=== PATIENT | female | born 1930 | race Caucasian/White ===

== ENCOUNTER → 2016-04-28 | Outpatient (CLI) | payer OTHER, MEDICARE ==
--- NOTE | 2016-04-28 13:20 | DX ---
Right ankle - 3 views Indication: Ankle sprain. Swelling. Technique: AP, mortise, and lateral views. Comparison: None Findings: The bones are anatomically aligned. No acute fracture or derangement of the ankle mortise. The joint spaces are well preserved. Tiny spurs emanate off the distal fibula and medial malleolus. N o significant soft tissue swelling. Impression: Negative. No acute fracture.
== END ==
LOC: CIMAGING 10:34
PROVIDERS: ATTEND Family Medicine
DX: S93.401A Sprain of unspecified ligament of right ankle, initial encounter (principal)
CPT/HCPCS: 73610-PO

== ENCOUNTER → 2016-06-20 | Outpatient (CLI) | payer OTHER, MEDICARE | LOC: CIMAGING 16:55 | PROVIDERS: ATTEND Family Medicine | DX: J44.9 Chronic obstructive pulmonary disease, unspecified (principal) | CPT/HCPCS: 71020-PO ==

== ENCOUNTER → 2016-08-08 | Outpatient (CLI) | payer OTHER, MEDICARE | LOC: BHFA 09:15 | PROVIDERS: ATTEND Internal Medicine Cardiovascular Disease | DX: I48.91 Unspecified atrial fibrillation (principal); I25.10 Atherosclerotic heart disease of native coronary artery without angina pectoris; I10 Essential (primary) hypertension ==

== ENCOUNTER 2017-04-17 11:13 | Observation (INO) | payer OTHER, MEDICARE ==
--- NOTE | 2017-04-17 11:35 | CPEKG ---
Heart Rate: 109 RR Interval: 550 P-R Interval: 128 QRSD Interval: 108 QT Interval: 360 QTC Interval: 485 P [place]: 0 QRS [place]: -37 T Wave [place]: 110 EKG Severity - ABNORMAL ECG - EKG Impression: A-V DUAL-PACED COMPLEXES W/ SOME INHIBITION Electronically Signed By: Jacinto Solis 17-Apr-2017 11:43:07
[2017-04-17] MEDS ORDERED: ASPIRIN 81 MG CHEWABLE TAB PO ONE (11:38)
--- NOTE | 2017-04-17 11:41 | EDPHY ---
H & P Stated Complaint: c/o upper abd/mid sternal chest pain/ nausea this am - currently no pain Time Seen by Provider: 04/17/17 11:27 HPI/ROS: CHIEF COMPLAINT: Nausea HISTORY OF PRESENT ILLNESS: The patient is an 86-year-old female with a history of cardiac disease including several stents, myocardial infarction, atrial fibrillation on Coumadin and pacemaker placement. She states that she was feeling well except getting over a slight cold when this morning she had nausea in her epigastric region that radiated up to her mid sternum. This began around 9:30 a.m. and lasted for about an hour. It is now resolved. She did not feel lightheaded. No diaphoresis. No radiation. No shortness of breath. It did not feel similar to her [place] symptoms. She thought that maybe it was because she took her Synthroid without food today. REVIEW OF SYSTEMS: Constitutional: denies: chills, fever, recent illness, recent injury EENTM: denies: blurred vision, double vision, nose congestion Respiratory: denies: cough, shortness of breath Cardiac: denies: chest pain, irregular heart rate, lightheadedness, palpitations Gastrointestinal/Abdominal: See HPI denies: abdominal pain, diarrhea, vomiting , blood streaked stools Genitourinary: denies: dysuria, frequency, hematuria, pain Musculoskeletal: denies: joint pain, muscle pain Skin: denies: lesions, rash, jaundice, bruising Neurological: denies: headache, numbness, paresthesia, tingling, dizziness, weakness Hematologic/Lymphatic: denies: blood clots, easy bleeding, easy bruising Immunologic/allergic: denies: HIV/AIDS, transplant EXAM: GENERAL: Well-appearing, well-nourished and in no acute distress. HEAD: Atraumatic, normocephalic. EYES: Pupils equal round and reactive to light, extraocular movements intact, sclera anicteric, conjunctiva are normal. ENT: TMs normal, nares patent, oropharynx clear without exudates. Moist mucous membranes. NECK: Normal range of motion, supple without lymphadenopathy or JVD. LUNGS: Breath sounds clear to auscultation bilaterally and equal. No wheezes rales or rhonchi. HEART: Regular rate and rhythm without murmurs, rubs or gallops. ABDOMEN: Soft, nontender, normoactive bowel sounds. No guarding, no rebound. No masses appreciated. BACK: No CVA tenderness, no spinal tenderness, step-offs or deformities EXTREMITIES: Normal range of motion, no pitting or edema. No clubbing or cyanosis. NEUROLOGICAL: Cranial nerves II through XII grossly intact. Normal speech, normal gait. 5/5 strength, normal movement in all extremities, normal sensation PSYCH: Normal mood, normal affect. SKIN: Warm, dry, normal turgor, no visible rashes or lesions. Source: Patient, Family Exam Limitations: No limitations - Personal History Current Tetanus Diphtheria and Acellular Pertussis (TDAP): Yes Tetanus Vaccine Date: 2012 - Medical/Surgical History Hx Asthma: No Hx Chronic Respiratory Disease: No Hx Diabetes: No Hx Cardiac Disease: Yes Hx Renal Disease: No Hx Cirrhosis: No Hx Alcoholism: No Hx HIV/AIDS: No Hx Splenectomy or Spleen Trauma: No Other PMH: THYROID, AFIB, PACEMAKER, [place], GALLBLADDER, RIGHT SHOULDER, CATARACTS , CAROTID ANEURISM, "MINI STROKES" - Family History Significant Family History: No pertinent family hx - Social History Smoking Status: Former smoker Alcohol Use: Sober Drug Use: None Constitutional: Initial Vital Signs Temperature (C) 37.2 C 04/17/17 11:25 Heart Rate 109 H 04/17/17 11:25 Respiratory Rate 18 04/17/17 11:25 Blood Pressure 102/94 H 04/17/17 11:25 O2 Sat (%) 94 04/17/17 11:25 O2 Delivery Mode Room Air Allergies/Adverse Reactions: codeine [Codeine] Allergy (Verified 08/20/15 10:20) Other-Enter Comments hydrocodone [Hydrocodone] Allergy (Verified 08/20/15 10:20) Other-Enter Comments morphine Allergy (Verified 08/20/15 10:20) Other-Enter Comments Home Medications: Medication Instructions Recorded Aspirin 81mg 03/28/09 SIMVASTATIN 03/28/09 Ativan 07/01/09 CO Q-10 07/01/09 Levothyroxine [Synthroid] mcg PO DAILY 02/11/11 WARFARIN SODIUM [Coumadin] mg PO 02/11/11 Simvastatin 10 mg PO 01/05/12 Sotalol 01/05/12 Carvedilol 08/20/15 Melatonin 08/20/15 VITAMIN D 08/20/15 Medical Decision Making - Diagnostics EKG Interpretation: An EKG obtained and was read and documented in trace view. Please see trace view for full reading and report. Paced rhythm Imaging Results: Imaging Impressions Chest X-Ray 04/17/17 11:38 Impression: Increased interstitial prominence, possibly related to a combination of airways disease superimposed on underlying COPD/emphysema. Imaging: Discussed imaging studies w/ order caller Radiologist ED Course/Re-evaluation: 12:30 p.m. the patient's lab work thus far is reassuring as is her x-ray. We discussed options. I recommended admission for further rule out considering her cardiac history. She agrees with this. She typically sees Dr. Ashby. We will admit to the hospital service and consult Cardiology. 12:38 p.m. I discussed the case with Librado from Cardiology who will consult. 12:44 p.m. I discussed the case with Ann who will accept to the medical service for Dr. Leon. Differential Diagnosis: Partial list of the Differential diagnosis considered include but were not limited to; acute coronary disease, arrhythmia, reflux, esophageal spasm , musculoskeletal and although unlikely based on the history and physical exam, I also considered PE, dissection, pneumonia pericarditis. - Data Points Laboratory Results: Laboratory Results 04/17/17 11:44 04/17/17 11:44 04/17/17 04/17/17 04/17/17 11:44 11:44 11:44 WBC 7.66 10^3/uL 10^3/uL (3.80-9.50) RBC 3.86 10^6/uL L 10^6/uL (4.18-5.33) Hgb 11.8 g/dL L g/dL (12.6-16.3) Hct 36.8 % L % (38.0-47.0) MCV 95.3 fL fL (81.5-99.8) MCH 30.6 pg pg (27.9-34.1) MCHC 32.1 g/dL L g/dL (32.4-36.7) RDW 13.4 % % (11.5-15.2) Plt Count 226 10^3/uL 10^3/uL (150-400) MPV 10.3 fL fL (8.7-11.7) Neut % (Auto) 51.7 % % (39.3-74.2) Lymph % (Auto) 34.6 % % (15.0-45.0) [place] % (Auto) 10.2 % % (4.5-13.0) Eos % (Auto) 2.9 % % (0.6-7.6) Baso % (Auto) 0.3 % % (0.3-1.7) Nucleat RBC Rel Count 0.0 % % (0.0-0.2) Absolute Neuts (auto) 3.97 10^3/uL 10^3/uL (1.70-6.50) Absolute Lymphs (auto) 2.65 10^3/uL 10^3/uL (1.00-3.00) Absolute Monos (auto) 0.78 10^3/uL 10^3/uL (0.30-0.80) Absolute Eos (auto) 0.22 10^3/uL 10^3/uL (0.03-0.40) Absolute Basos (auto) 0.02 10^3/uL 10^3/uL (0.02-0.10) Absolute Nucleated RBC 0.00 10^3/uL 10^3/uL (0-0.01) Immature Gran % 0.3 % % (0.0-1.1) Immature Gran # 0.02 10^3/uL 10^3/uL (0.00-0.10) PT 26.1 SEC H SEC (12.0-15.0) INR 2.47 H (0.83-1.16) APTT 39.6 SEC H SEC (23.0-38.0) Sodium 143 mEq/L mEq/L (135-145) Potassium 5.3 mEq/L H mEq/L (3.5-5.2) Chloride 104 mEq/L mEq/L (97-110) Carbon Dioxide 27 mEq/l mEq/l (22-31) Anion Gap 12 mEq/L mEq/L (8-16) BUN 33 mg/dL H mg/dL (7-23) Creatinine 1.1 mg/dL H mg/dL (0.6-1.0) Estimated GFR 47 Glucose 83 mg/dL mg/dL (70-100) Calcium 9.3 mg/dL mg/dL (8.5-10.4) Total Bilirubin 0.3 mg/dL mg/dL (0.1-1.4) Conjugated Bilirubin 0.1 mg/dL mg/dL (0.0-0.5) Unconjugated Bilirubin 0.2 mg/dL mg/dL (0.0-1.1) AST 29 IU/L IU/L (14-46) ALT 36 IU/L IU/L (9-52) Alkaline Phosphatase 59 IU/L IU/L (38-126) Troponin I < 0.012 ng/mL ng/mL (0.000-0.034) Total Protein 6.3 g/dL g/dL (6.3-8.2) Albumin 3.5 g/dL g/dL (3.5-5.0) Lipase 190 IU/L IU/L (23-300) Medications Given: Discontinued Medications Aspirin (Aspirin) 324 mg PO EDNOW ONE Stop: 04/17/17 11:39 Last Admin: 04/17/17 11:47 Dose: 324 mg Departure - Departure Disposition: [facility] Inpatient Acute Clinical Impression: Chest pain Qualifiers: Chest pain type: unspecified Qualified Code(s): R07.9 - Chest pain, unspecified Condition: Fair
[2017-04-17 11:48] LABS: PLATELET COUNT 226 10^3/uL (150-400)
[2017-04-17 12:04] LABS: INR 2.47 (0.83-1.16); PROTIME(PATIENT) 26.1 SEC (12.0-15.0)
[2017-04-17] MEDS ORDERED: ONDANSETRON DISINTEGRATING 4 MG TAB PO PRN (14:19)
[2017-04-17] MEDS ORDERED: ONDANSETRON 4 MG/2 ML VIAL IVP PRN (14:19)
[2017-04-17] MEDS ORDERED: WARFARIN SODIUM 3 MG TAB PO SCH (16:00)
--- NOTE | 2017-04-17 16:00 | HOSPPROG ---
Hospitalist Progress Note Assessment/Plan: no sbp aggressive diuresis Objective: Vital Signs Temp Pulse Resp BP Pulse Ox 36.7 C 74 16 118/55 L 94 04/17/17 14:26 04/17/17 14:26 04/17/17 14:26 04/17/17 14:26 04/17/17 14:26 PT 26.1 SEC (12.0-15.0) H 04/17/17 11:44 INR 2.47 (0.83-1.16) H 04/17/17 11:44 ICD10 Worksheet Patient Problems: Problems Problem Status Onset Chest pain Acute
[2017-04-17] MEDS ORDERED: LORazepam 0.5 MG TAB PO PRN (16:01)
[2017-04-17] MEDS ORDERED: MELATONIN 3 MG TAB PO PRN (16:01)
[2017-04-17] MEDS ORDERED: NS 1,000 ML IV SCH (16:15)
--- NOTE | 2017-04-17 16:34 | GHP ---
[f rep st] HISTORY AND PHYSICAL DATE OF ADMISSION: 04/17/2017 The patient is a pleasant 86-year-old female with a history of coronary disease with stents 11 years ago, atrial fibrillation and pacemaker who presents with an episode of epigastric pain. She got up t his morning, she did not feel well. She felt some epigastric discomfort, a wave of nausea. She has not had diarrhea. She did not vomit. She has not had fever, chills. Lasts for about an hour and it resolved. There is no lightheadedness, diaphoresis, or radiation. No shortness of breath. It was unlike her previous [place] symptoms. She sought care out of concern. She had a normal EKG, normal chest x-ray and was offered admission, which she took. REVIEW OF SYSTEMS: Complete 10-point review of systems conducted, negative except as noted in the HP I. PAST MEDICAL HISTORY: Coronary artery disease, pacemaker, atrial fibrillation, hypothyroidism. ALLERGIES: Codeine, hydrocodone, and morphine. HOME MEDICATIONS: Aspirin, PreserVision, carvedilol, vitamin D3, Flonase, levothyroxine, lorazepam h .s., sotalol, vitamin B, warfarin. SOCIAL HISTORY: Lives independently. No alcohol. No tobacco. FAMILY HISTORY: Daughter is healthy and at the bedside. PHYSICAL EXAMINATION: VITAL SIGNS: Temp 37.2, blood pressure 102/94, pulse 109, breathing 18 times a minute, 94% on room air. GENERAL: No acute distress. HEENT: Sclerae anicteric. Oropharynx chanel r. Mucous membranes are moist. NECK: Supple. No lymphadenopathy or JVD. LUNGS: Clear to auscult ation bilaterally. HEART: S1, S2 without murmurs. ABDOMEN: Soft, nontender, nondistended. LOWER EXTREMITIES: Without edema. Calves nontender. SKIN: Without rash. NEUROLOGIC: Nonfocal. LABS: White count 7.6, hematocrit 36, platelets 226,000. INR is 2.5. Sodium 142, potassium 5.3, ch loride 104, bicarb 27, BUN 33, creatinine 1.1. Baseline creatinine is less than 1. LFTs are normal. Troponin is less than 0.012. EKG interpreted by me, paced rhythm, likely atrial fibrillation. Lef t bundle branch block pattern. Chest x-ray, interpreted by me, shows no acute cardiopulmonary diseas nolberto Zamora discussed the case with Dr. Jacinto Solis. ASSESSMENT/PLAN: An 86-year-old female with epigastric pain. 1. Epigastric pain. This is unlikely to be a coronary equivalent. We are going to rule her out and follow her on telemetry. 2. Atrial fibrillation. Follow. She is clinically in sinus. 3. Hyperkalemia. This is mild likely secondary to slight volume depletion. We will give her a L of normal saline. 4. Elevated creatinine. This is mild acute kidney injury from probably a little bit of poor p.o. in take. 5. Coronary artery disease. She is on appropriate medications. Will follow. As above, I do not th ink this represents acute coronary syndrome. We will rule out with troponins. DISPOSITION: Observation. /[id number]/MODL
[2017-04-17] MEDS: CARVEDILOL 6.25 MG TAB PO SCH (18:22)
[2017-04-17] MEDS: ACETAMINOPHEN 325 MG TAB PO PRN (20:12)
[2017-04-17] MEDS: SOTALOL HCL 80 MG TAB PO SCH (20:13)
[2017-04-17] MEDS ORDERED: ASPIRIN 81 MG CHEWABLE TAB PO SCH (21:00)
[2017-04-17] MEDS ORDERED: NON-FORMULARY NEW DRUG (Simvastatin [Zocor] 20 MG) PO SCH (21:00)
[2017-04-17] MEDS ORDERED: ATORVASTATIN CALCIUM 10 MG TAB PO SCH (21:00)
--- NOTE | 2017-04-17 21:10 | GCON ---
[f rep st] CONSULTATION CARDIOLOGY CONSULTATION SUPERVISING [employer]S SALES ADVISOR: Claudio Ashby MD. CHIEF COMPLAINT: Lower sternum/upper epigastric area pressure with episode of nausea this morning. HISTORY OF PRESENT ILLNESS: The patient is an 86-year-old female who is known to our practice, her primary synchronizer is Dr. Claudio Ashby. She has a significant past history that includes CAD with previous MO, PCI of the LAD with restenosis and most recently YOMAIRA implantation to the proximal LAD in July of 2009, paroxysmal atrial fibrillation, valvular heart disease, hypertension, hyperlipidemia, hypothyroidism, history of sick sinus syndrome with remote permanent pacemaker implantation. Patient reports she had been in her usual state of health, until this morning, around 9 a.m., she had started experiencing a lower mid sternal pressure, radiating down into her upper epigastrium area. She did feel a wave of nauseousness with these symptoms but she did not vomit. She denies any palpitations, lightheadedness, shortness of breath, or diaphoresis. She reported symptoms lasted approximately 1 hour. With concerns of this, she went to [facility]'s emergency department for further evaluation. Upon arrival, she did undergo electrocardiogram, initial EKG showing AV paced, with some inhibition but no significant ST or T-wave abnormalities. Initial laboratory studies showing negative troponin. Chest x- ray showing no acute cardiopulmonary process. Possible underlying COPD. Due to her history, it was felt best that she be admitted to the hospital for further evaluation. She was transferred from the [facility] emergency department to the PCU. She informs me at the time of my examination that she has had no further lower sternal pressure. She also reports that the pressure that she experienced was not significantly like what she has had with her previous MO or stenting (reporting as a great weight was on her chest during those times). She reports no recent fevers, chills, night sweats. Denies being around anybody sick. Denies any bleeding problems, blood in emesis or blood in stools. Denies any orthopnea, PND, edema. Reports no near-syncope or syncopal events. PAST MEDICAL HISTORY: Includes CAD with previous PCI, most recently of LAD in 2009, sick sinus syndrome with remote PPM implantation, paroxysmal atrial fibrillation, hypothyroidism, hypertension, hyperlipidemia, valvular heart disease, CORONA and PVD with noted decreased ROGELIO in left lower extremity, August 2015. PAST SURGICAL HISTORY: Previous surgery includes cataract surgery, pacemaker implantation in December [address] Hill, percutaneous coronary intervention with most recent in [address] Ashby, shoulder surgery. FAMILY HISTORY: Patient reports both father and aunt had heart disease. SOCIAL HISTORY: Patient is retired. She lives in independent living at a long-term facility. She reports she is a previous smoker, quitting in 1978. She has very limited alcohol intake, and she denies any illicit drug use. She is a . She has 2 adult children who are alive and well. ALLERGIES: Codeine, hydrocodone and morphine. HOME MEDICATIONS: Vitamin B complex 1 tablet p.o. daily, Ativan 0.5 mg p.o. h.s. p.r.n., Flonase 1 spray each nostril b.i.d., Preservision 1 tablet p.o. daily, aspirin 81 mg p.o. h.s., Synthroid 75 mcg p.o. daily, herbs and supplements, Coreg 6.25 mg p.o. daily, sotalol 80 mg p.o. b.i.d., simvastatin 20 mg p.o. h.s., melatonin 3 mg p.o. h.s. p.r.n., vitamin D 3000 units p.o. daily, warfarin 3 mg p.o. Sunday, , Sunday, Coumadin 6 mg p.o. Sunday , Sunday, Sunday, Sunday. REVIEW OF SYSTEMS: A 10-point review of systems was done on patient; all negative except as mentioned above. PHYSICAL EXAMINATION: GENERAL APPEARANCE: Thin, well-groomed elderly female. She is alert and oriented to person, place, time, situation, appears to be under no acute distress at this time. CURRENT VITAL SIGNS: Blood pressure 118/55, heart rate of 74, AV paced on the monitor. Respirations 16. Saturating 94% on room air. Temperature 36.7 degrees Celsius. HEENT: Head is normocephalic. Lips and tongue are pink and moist with no signs of cyanosis. Conjunctivae pink. NECK: Trachea is midline, +2 carotid pulses bilaterally. No auscultated bruits. No jugular vein distention. RESPIRATORY: Lungs are clear to auscultation, no rhonchi, rales or wheezes. No accessory muscle use. No intercostal muscle retraction noted. CARDIAC: Regular rate, regular rhythm, S1, S2, no S3, S4, gallops, rubs or murmurs noted. ABDOMEN: Soft, nontender, bowel sounds x4 quadrants. No organomegaly. No palpable masses. SKIN: [place], warm, dry, no cyanosis, no clubbing, no peripheral edema. VASCULAR: +2 carotids bilateral, +2 radials bilateral, +1 dorsal pedal and posterior tibial pulses bilateral. LABORATORY STUDIES: Laboratory studies drawn today show WBC of 7.66, hemoglobin 11.8, hematocrit 36.8, platelet count 226. PT 26.1, INR 2.47, APTT 39.6. Sodium 143, potassium 5.3, chloride 104, CO2 27, BUN 33, creatinine 1.1, glucose 83, calcium 9.3, total bilirubin 0.3, AST 29, ALT 36, alkaline phosphate 59. Troponin less than 0.012. Total protein 6.3, albumin 3.5, lipase 190. Repeated troponin done 4 hours later was less than 0.012. STUDIES: Electrocardiogram as mentioned above. Chest x-ray as mentioned above. Patient noted old studies, most recent stenting was to the proximal LAD on July 22, 2009, PCI with YOMAIRA implantation done. Most recent echocardiogram was 08/08/2016 showing EF of 55%, normal LV systolic function. Diastolic dysfunction was noted. Patient noted to have moderate AI, moderate MR, and mild TR. Most recent device check done January 16, 2017, showing atrial fibrillation with an atrial fibrillation burden of 2%, was noted also to have 2 episodes of atrial tachycardia with RVR lasting 2 to 5 seconds. Device functioning within normal limits. Most recent MPI study was 02/20/2012 which showed moderate to severe intensity deficit involving the apical anterior and apical inferior oliveros consistent with previous infarct; 18% of the myocardia was affected, EF was 55%. ASSESSMENT AND PLAN: 1. Chest pressure: Patient with noted history of coronary artery disease, reporting symptoms are not typical of what she has experienced in the past with prior myocardial infarctions and heart attack. EKG shows no significant ST changes from previous EKGs. Troponin negative. At this time, we will cycle her troponin levels, if negative, then consider doing a Casie MPI study on her tomorrow morning. If they do elevate throughout the night, then I will hold her warfarin, and potentially plan for cardiac catheterization. 2. Coronary artery disease: Patient with noted history of coronary artery disease. She has been resumed on home antiplatelet therapy of aspirin. She is continued on beta-amina of carvedilol. 3. Hypertension: Blood pressure is maintaining within normal limits. Again, patient has been resumed on home dose of carvedilol. 4. Paroxysmal atrial fibrillation: Patient noted to have a 2% atrial fibrillation burden off last device interrogation, she appears to be AV paced at the current time. Continue on home dose of carvedilol and sotalol. As for anticoagulation, her INR is therapeutic. We will hold lauren's warfarin dosage , with plan of resuming tomorrow depending on stress testing results. 5. Hyperlipidemia: Patient has been resumed on statin therapy. 6. Hyperkalemia: The patient's potassium was mildly elevated at 5.3, but could be due to hemolysis in blood draw, or dehydration. Patient is beginning IV fluid per hospital services. 7. Mild renal insufficiency: Patient noted to have mildly elevated BUN and creatinine, probably due to lack of oral intake. IV fluid as mentioned above. 8. Valvular heart disease: Most recent echocardiogram showed moderate aortic insufficiency, moderate mitral regurgitation, mild tricuspid regurgitation. Patient does not appear to be fluid overloaded, and actually appears euvolemic. Continue to monitor. 9. Hypothyroidism: Patient has been resumed on home dosage of Synthroid. Thank you for this consultation. We will be glad to follow along with you. Plan discussed with both Dr. Leon of the hospitalist services and Dr. Ashby. /[id number]/MODL MTDD
[2017-04-17] MEDS: FLUTICASONE NASAL 120 SPRAYS/16 GM MDI EACHNARE SCH (21:45)
[2017-04-18 05:25] LABS: INR 2.37 (0.83-1.16); PROTIME(PATIENT) 25.9 SEC (12.0-15.0)
[2017-04-18] MEDS ORDERED: LEVOTHYROXINE 75 MCG TAB PO SCH (06:00)
[2017-04-18 07:29] VITALS: RESP 15
[2017-04-18] MEDS: CARVEDILOL 6.25 MG TAB PO SCH (08:47)
[2017-04-18] MEDS: SOTALOL HCL 80 MG TAB PO SCH (08:47)
[2017-04-18] MEDS: ACETAMINOPHEN 325 MG TAB PO PRN (08:50)
[2017-04-18] MEDS ORDERED: Herbals/Supplements -Info Only PO SCH (09:00)
[2017-04-18] MEDS ORDERED: VITAMIN B COMPLEX 1 EA CAP/TAB PO SCH (09:00)
[2017-04-18] MEDS ORDERED: CHOLECALCIFEROL VIT D3 1,000 UNITS TAB PO SCH (09:00)
[2017-04-18] MEDS ORDERED: PRESERVISION AREDS2 FORMULA EYE VIT 1 EACH PO SCH (09:00)
[2017-04-18] MEDS ORDERED: REGADENOSON 0.4 MG/5 ML SYR IVP ONE (09:33)
[2017-04-18] MEDS: FLUTICASONE NASAL 120 SPRAYS/16 GM MDI EACHNARE SCH (10:44)
[2017-04-18 11:11] VITALS: BP 116/63; PULSE 76; TEMP 97.3; O2SAT 90
--- NOTE | 2017-04-18 13:52 | PDCARPN ---
Cardiology Progress Note Chief Complaint: Patient reports she wants to go home Assessment/Plan: Assessment: 86-year-old female with significant past history that includes CAD, previous [place] , most recent PCI of the LAD in July of 2009, paroxysmal atrial fibrillation, valvular heart disease, hyperlipidemia, hypertension, hypothyroidism, sick sinus syndrome with remote ppm implantation. Admitted 04/17/2017 for 1 episode of lower midsternal chest /upper epigastric pressure. Admitted to hospital, negative troponins x3 , chest x-ray show no acute cardiopulmonary process. Patient has been on continuous cardiac monitoring overnight, he showing a sense V paced , or a sense , intrinsic ventricular paced. No other malignant arrhythmias, or pauses noted. Patient reports no further episodes of chest pain or pressure. Underwent MPI study this morning, noted normal LV EF of 66% with no wall motion abnormalities, old infarction noted, but no evidence of ischemia. Images reviewed with Dr. Ashby, felt unchanged from previous MPI study 06/2011. Plan: 1. Chest pressure: Negative troponins, who no new ischemia noted on stress testing. No further episodes of chest pain at time. Medical management. 2. CAD: No further episodes of chest pressure or pain, MPI study showing old infarct, but no new ischemia. Normal ejection fraction no wall motion abnormality. Recommendation continue medical management including aspirin therapy, beta-amina, and statin therapy. 3. Hypertension: Blood pressure is within normal limits. Continue on home dose of carvedilol. 4. Paroxysmal atrial fibrillation: None noted since hospitalization. With continue on home dosage of carvedilol on sotalol. Resume patient's home dose of warfarin. Patient to follow up in outpatient INR clinic as planned. 5. Sick sinus syndrome: Patient with remote ppm implantation, reviewing continuous cardiac monitoring, appears pacemaker functioning within limits. Patient to follow up in outpatient pacemaker clinic as planned. 6. Hyperlipidemia: Laboratory studies drawn today show adequate suppression of LDL 0 (72), continue on home dose of statin therapy 7. Valvular heart disease: Patient appears to be euvolemic on physical examination. Continue to monitor in outpatient setting. Patient will be discharged home today, have scheduled her for follow-up appointment with Dr. Ashby, her primary laboratory sample carrier, May 03 at 3:00 p.m.. She has been told that if any further problems or symptoms , she is to contact the clinic or seek medical attention. 04/18/17 13:51 Subjective: Patient reports no episodes of chest pain or pressure during hospitalization. Reports no palpitations, shortness of breath, orthopnea, PND, edema, lightheadedness, near-syncope, or syncopal events. Reviewed/Discussed With: hospitalist (Dr Leon), other (Dr Ashby) Objective: Vital Signs (8 Hrs) Temp Pulse Resp BP Pulse Ox 04/18/17 11:05 36.3 C 76 15 116/63 90 L 04/18/17 07:29 94 04/18/17 07:25 36.7 C 74 15 124/67 H 96 Intake/Output (24 Hrs) 04/17/17 04/18/17 04/19/17 05:59 05:59 05:59 Intake Total 865 Output Total 950 Balance -85 Intake: IV Infused (ml) 865 Ns 1,000 ml @ 125 mls/hr 865 IV CONT DONNA Rx#: [id number] Output: Urine (ml) 950 Toilet 950 Other: Weight 60.101 kg Number of Voids Toilet 1 Result Diagrams: 04/17/17 11:44 04/17/17 11:44 Cardiac Labs: Cardiac Lab Results (72 Hrs) 04/17/17 04/17/17 21:20 15:21 Troponin I < 0.012 < 0.012 - Physical Exam Constitutional: WDWN, healthy appearing, no apparent distress Ears, Nose, Mouth, Throat: moist mucous membranes Cardiovascular: regular rate and rhythm, no rubs, no gallops, systolic murmur (1 -2/6 systolic murmur upper right chest), pulses symmetric bilat, No jugular vein distention, No carotid bruit Peripheral Pulses: 1+: dorsalis-pedis (R), dorsalis-pedis (L), 2+: carotid (R), carotid (L) Respiratory: clear to auscultate bilat, no crackles, no wheezes, No reduced air movement Gastrointestinal: normoactive bowel sounds Skin: no rashes, warm, no edema Neurologic: AAOx3 Psychiatric: cooperative, interactive, following commands ICD10 Worksheet Patient Problems: Problems Problem Status Onset Chest pain Acute
--- NOTE | 2017-04-18 13:54 | HOSPPROG ---
Hospitalist Progress Note Assessment/Plan: 86 yo F w brief epigastric pain neg workup eating w no diarrhea, constipation or vomting home today Subjective: neg stress, tropo. anxious for dc Objective: Vital Signs Temp Pulse Resp BP Pulse Ox 36.3 C 76 15 116/63 90 L 04/18/17 11:05 04/18/17 11:05 04/18/17 11:05 04/18/17 11:05 04/18/17 11:05 04/17/17 04/18/17 04/19/17 05:59 05:59 05:59 Intake Total 865 Output Total 950 Balance -85 PT 25.9 SEC (12.0-15.0) H 04/18/17 03:50 INR 2.37 (0.83-1.16) H 04/18/17 03:50 - Physical Exam Constitutional: no apparent distress, appears nourished Eyes: PERRL, anicteric sclera Ears, Nose, Mouth, Throat: moist mucous membranes, hearing normal Cardiovascular: regular rate and rhythym, no murmur, rub, or gallop Respiratory: no respiratory distress, no rales or rhonchi Gastrointestinal: normoactive bowel sounds, soft, non-tender abdomen Genitourinary: no bladder fullness, No puga in urethra Skin: warm, normal color Musculoskeletal: full muscle strength, no muscle tenderness Neurologic: AAOx3, sensation intact bilaterally Psychiatric: interacting appropriately ICD10 Worksheet Patient Problems: Problems Problem Status Onset Chest pain Acute
--- NOTE | 2017-04-18 14:12 | GDS ---
[f rep st] DISCHARGE SUMMARY DISCHARGE DIAGNOSES: 1. Epigastric pain. 2. History of coronary artery disease with prior infarct and stents. 3. Atrial fibrillation. 4. Hypothyroidism. HOSPITAL COURSE: Please see admission history and physical by Dr. Pawan Leon. The patient prese nted with epigastric pain. It was dissimilar to her previous anginal equivalent. She has therapeuti c INR. She had unremarkable labs, unremarkable abdominal exam, nonischemic EKG, and negative troponi n. She underwent a myocardial perfusion test which showed prior inferior infarct with no balbir-infarc t or other ischemia and intact LV function. She was not in heart failure. She had no abnormal heart rhythms. She is discharged home. She was seen by her guide excursion. She has outpatient Cardiology followup. /[id number]/MODL
--- NOTE | 2017-04-18 14:47 | CPR ---
[f rep st] NONINVASIVE CARDIAC PROCEDURE REPORT PROCEDURE: Lexiscan injection of Lexiscan myocardial perfusion imaging study. INDICATION FOR PROCEDURE: Patient with known history of CAD, chest pressure, paced rhythm. PRE: After obtaining informed consent, ensuring patient's n.p.o. status for greater than 12 hours of caffeine, she was placed on electrocardiogram. Initial EKG showing atrial paced rhythm with intrins ic ventricular response, noting Q-waves in V1 through V3. Leftward axis. Patient denies of any ches t pain, shortness of breath, or symptoms suggesting of ischemia. Initial blood pressure 138/64, satu ration 89%. INJECTION: Patient was given Lexiscan slow IV push followed by nuclear isotope. Patient's electroca rdiogram remained unchanged. Patient reporting within 1-2 minutes of injection of some mild stomach upset, but denying of any chest pain or pressure. Blood pressure remained stable, within 5 minutes p atient reporting symptoms subsided. Her vital signs are stable, with final blood pressure of 120/60, saturation 92%, heart rate 79. No significant EKG changes. IMPRESSION: 86-year-old female with known history of coronary artery disease, sick sinus syndrome wi th remote permanent pacemaker implantation, admitted for chest pressure. Negative troponin, being fu rther evaluated for further risks stratify by Casie MPI study, no significant EKG changes with injecti on, patient did report a mild upset stomach post injection which subsided within 5. Vital signs are stable. She will finish poststress imaging in Nuclear Medicine at this time. /[id number]/MODL
[2017-04-18] MEDS ORDERED: WARFARIN SODIUM 3 MG TAB PO SCH (16:00)
--- NOTE | 2017-04-18 16:33 | ASDISCHSUM ---
Discharge Information Plan Status:Home with No Needs Medically Cleared to Leave:04/17/2017 Discharge Date:04/18/2017 02:40 PM CM D/C Disposition:Home, Routine, Self-Care ADT D/C Disposition:Home, Routine, Self-Care Projected Discharge Date:04/18/2017 02:40 PM Transportation at D/C: Discharge Delay Reason: Follow-Up Date:04/18/2017 02:40 PM Discharge Slot: Final Diagnosis: Placement Information Patient Contact Information Contact Name:JANENE Relationship:Daughter Address:[address] City:[place] Phone: State/Zip Code:[place] [address] Email: Financial Information Financial Class: Primary Plan Desc:MEDICARE OUTPATIENT Primary Plan Number:[id number] Secondary Plan Desc:[employer]/MDR SUPPLEMENT Secondary Plan Number:[id number] Assessment Information LACE LACE Length of stay for Answers: 1 day current admission Acuity / Level of Answers: No Care: Did the patient have an inpatient admission? Comorbidities - select Answers: Other all that apply # of Emergency department Answers: 0 visits in the last 6 months Score: 2 Date Signed: 04/18/2017 04:32 PM Electronically Signed By:Esperanza Dugan RN Intervention Information Intervention Type:*RACHEL-Signed Date of Service:04/18/2017 09:50 AM Patient Type:Observation Staff Member:Angela Campbell Hours: Discipline: Severity: Comment:
== END 2017-04-18 14:40 | disposition home or self-care (01) ==
LOC: CED 11:13 → CEDHOLD 12:36 → F2W 14:03
PROVIDERS: ADMIT Internal Medicine; ATTEND Internal Medicine
DX: R10.13 Epigastric pain (principal); I25.10 Atherosclerotic heart disease of native coronary artery without angina pectoris; I48.0 Paroxysmal atrial fibrillation; E87.5 Hyperkalemia; N17.9 Acute kidney failure, unspecified; I49.5 Sick sinus syndrome; E03.9 Hypothyroidism, unspecified; I25.2 Old myocardial infarction; I08.9 Rheumatic multiple valve disease, unspecified; G47.33 Obstructive sleep apnea (adult) (pediatric); I73.9 Peripheral vascular disease, unspecified; Z79.01 Long term (current) use of anticoagulants; Z87.891 Personal history of nicotine dependence; Z82.49 Family history of ischemic heart disease and other diseases of the circulatory system; Z95.5 Presence of coronary angioplasty implant and graft; Z95.0 Presence of cardiac pacemaker
CPT/HCPCS: 71046; 78452; 93005; 93017; A9500; G0378; J2785; 80048-PO; 80076-PO; 83690-PO; 84484-PO; 85025-PO; 85610-PO; 85730-PO

== ENCOUNTER 2017-06-12 09:32 | Emergency (ER) | payer OTHER, MEDICARE ==
[2017-06-12] MEDS ORDERED: LET GEL TOPICAL 1 EA SYR TP ONE (10:10)
--- NOTE | 2017-06-12 10:53 | EDPHY ---
H & P Time Seen by Provider: 06/12/17 09:54 HPI/ROS: This patient mechanical fall the day prior to presentation while walking on sidewalk tripping on an uneven surface at around 10:00 a.m.. She struck her right forehead against the ground sustaining a laceration and reports injury to her right hand, right upper back and right knee. She states that she sustained a laceration from the fall and that her neighbor, an RN clean the wound and applied butterfly bandages. She states that immediately after the fall she only had pain from the laceration and mild knee pain but given the onset of more back pain today and the presence of the laceration, her daughter brought the patient in by private vehicle for further evaluation of her wounds today. The patient reports that she has 5/10 pain at her face the site of the laceration and periorbital contusion. She has 5/10 pain in the right upper thoracic back, 3/10 pain in the right hand at the 5th metacarpal region and for 5/10 pain at the right patella. She has no difficulty walking despite the knee injury. She denies any other complaints. ROS: Constitutional: No fatigue. No other complaints HEENT: She denies any nasal injury or dental injury. No epistaxis. No vision changes. No bony pain to the forehead or face. Musculoskeletal: Known midline neck or back pain. Neuro: No confusion. No focal numbness tingling or weakness. Pulmonary: No shortness of breath. No coughing recently. Cardiovascular: No lightheadedness. No chest pain. GI: No abdominal pain. No nausea or vomiting. : No complaints new line integumentary: No other significant lacerations abrasions besides the forehead mentioned above. 10 point ROS is otherwise negative. Smoking Status: Former smoker Physical Exam: Physical exam: Vital signs are normal General: Patient is in no acute distress. HEENT: Patient has a 2 cm full-thickness laceration to the area just superior to the right eyebrow with subcutaneous tissue evident. The front talus muscles intact. No foreign bodies are present. Minimal bleeding after the wound was cleaned. No underlying bony step-off or hematoma. She does have periorbital and infraorbital contusion around the right eye with no significant bony tenderness to the zygoma or orbital region. Nose atraumatic. Ears: Clear bilaterally with no hemotympanum. Oropharynx: No dental trauma or malocclusion. No intraoral lacerations. Eyes: Pupils are equal and reactive to light. Extraocular motions are intact. No hyphema. Optic fundi: Clear with no papilledema or hemorrhage. Neck: Trachea is midline with no stridor. The patient has no midline neck tenderness and retains a full range of motion without increase in pain. Lungs: Clear to auscultation bilaterally. Back: Patient has tenderness in the midline thoracic region between T2 and T6 or so extends to the right posterior ribs between the thoracic spine and scapula -moderate. No crepitance. She has no lumbar tenderness. Cardiac: Regular rate and rhythm no murmur gallop or rub. Chest: Nontender. Abdomen: Soft nontender no organomegaly Extremities: Atraumatic except for right hand and knee Right hand: Patient has ecchymosis swelling and mild tenderness to the 5th metacarpal region of her right hand. No wrist swelling or tenderness is noted. Right knee: Patient has contusion to the right patella with minimal tenderness. No pain with passive motion of the patella or patellar anxiety without maneuver. Her knee exam is otherwise atraumatic with no medial, lateral or posterior tenderness. Jose Guadalupe's is negative for laxity. Varus and valgus stress negative for laxity or increase in pain. The patient is able to extend her knee versus resistance with 5/5 strength without increase in pain in the patella. Neuro: GCS of 15. Cranial nerves II through XII intact. Cerebellar exam is normal as judged by symmetric rapid hand movements bilaterally. No pronator drift. No sensory or motor deficits are appreciated. Initial differential diagnosis: Minor head injury, concussion, thoracic back strain, compression fracture, traumatic hand hematoma, hand fracture, patellar contusion, doubt patellar fracture Constitutional: Initial Vital Signs Temperature (C) 37 C 06/12/17 09:41 Heart Rate 78 06/12/17 09:41 Respiratory Rate 20 06/12/17 09:41 Blood Pressure 139/83 H 06/12/17 09:41 O2 Sat (%) 96 06/12/17 09:41 O2 Delivery Mode Room Air Allergies/Adverse Reactions: codeine [Codeine] Allergy (Verified 06/12/17 09:46) Other-Enter Comments hydrocodone [Hydrocodone] Allergy (Verified 06/12/17 09:46) Other-Enter Comments morphine Allergy (Verified 06/12/17 09:46) Other-Enter Comments Home Medications: Medication Instructions Recorded Aspirin [Aspirin 81mg (*)] 81 mg PO HS 03/28/09 Simvastatin [Zocor] 20 mg PO HS 03/28/09 Herbals/Supplements -Info Only 1 ea PO DAILY 07/01/09 LORazepam [Ativan (*)] 0.5 mg PO HS PRN 07/01/09 Sotalol HCl [Betapace 80 MG (*)] 80 mg PO BID 01/05/12 Carvedilol [Coreg (*)] 6.25 mg PO BIDMEAL 08/20/15 Cholecalciferol Vit D3 [Vitamin D3 1,000 units PO DAILY 08/20/15 (*)] Melatonin [Melatonin 3 MG (*)] 3 mg PO HS PRN 08/20/15 C/E/Zn/Cu/OM3/DHA/EPA/LUT/ZEAX 1 each PO DAILY 04/17/17 [Preservision Areds 2 Softgel] Fluticasone Nasal [Flonase Nasal 1 sprays EACHNARE BID 04/17/17 [place]] Levothyroxine [Synthroid 75 mcg 75 mcg PO DAILY06 04/17/17 (*)] Vitamin B Complex [B Complex] 1 each PO DAILY 04/17/17 Warfarin Sodium [Coumadin 3MG (*)] 3 mg PO TUTHSA@16 04/17/17 Warfarin Sodium [Coumadin 3MG (*)] 6 mg PO SUMOWEFR@16 04/17/17 MDM/Departure - MDM Diagnostics: Thoracic spine x-rays: Negative for acute fracture by my interpretation Chest x-ray: No pneumothorax. No rib fractures appreciated. Hand x-ray: Negative for fracture by my interpretation Imaging: I viewed and interpreted images myself Procedures: The wound is 2 cm described physical exam The wound was copiously irrigated with saline. The wound was explored for foreign bodies and none were found. The wound was prepped and draped in the normal sterile fashion. The wound was anesthetized using let solution followed by 1% plain lidocaine mixed 50 50 with 0.5% Marcaine, 27 gauge needle, 3 mL with good effect. The edges were reapproximated using 5 0 Prolene, PC 1 needle, 6 running sutures and 1 interrupted sutures with good hemostasis and cosmesis. The patient tolerated the procedure well. There were no complications. Counseled patient regarding wound care Medications Given: Discontinued Medications Tetracaine/Epinephrine/Lidocaine (Let Gel Topical) 1 ea TP EDNOW ONE Stop: 06/12/17 10:11 Last Admin: 06/12/17 10:15 Dose: 1 ea ED Course/Re-evaluation: Discussion: Patient with for laceration, contusions and strains without clinical evidence of significant head injury, fracture or other significant concerning findings. Given this patient's age and the fact she is on Coumadin brings up the possibility of cerebral contusion more significant head injury has , however given her normal mental status which is baseline per daughter-very articulate with good memory and no focal findings and no LOC or feeling of being dazed from the initial injury and no headache currently, I do not think that she requires CT imaging at this time. I counseled patient and her daughter regarding this some detail. However the understand the need to return to the emergency department should she develop significant headache, confusion or other concerning findings. - Depart Disposition: Home, Routine, Self-Care Clinical Impression: Facial laceration, Upper back strain, Periorbital hematoma of right eye, Traumatic hematoma of hand, Chest wall contusion, Minor head injury without loss of consciousness Condition: Good Instructions: Head Injury (ED), Facial Laceration (ED), Thoracic Back Strain ( ED) Additional Instructions: Diagnoses: 1. Minor head injury with periorbital hematoma 2. Facial laceration 3. Upper back strain 4. Chest wall contusion 5. Traumatic hand hematoma Plan: Ice to sore areas 20 min at a time few times a day for the next few days until symptoms improve Tylenol for pain as needed Keep the facial wound clean and dry for the next 1/2 to 2 days. Then clean it daily with warm soapy water Return for suture removal in 5-7 days Return sooner if he develops severe headache, confusion, vomiting, redness to the wound or discharge or other concerns. Referrals: Juli Morin MD [Primary Care Provider] - As per Instructions
[2017-06-12 11:28] VITALS: BP 146/75
== END 2017-06-12 11:28 | disposition home or self-care (01) ==
LOC: CED 09:32
PROC: 0HQ1XZZ Repair Face Skin, External Approach (ICD-10-PCS; principal; 2017-06-12)
DX: S01.81XA Laceration without foreign body of other part of head, initial encounter (principal); S29.012A Strain of muscle and tendon of back wall of thorax, initial encounter; S60.221A Contusion of right hand, initial encounter; S20.229A Contusion of unspecified back wall of thorax, initial encounter; Z87.891 Personal history of nicotine dependence; Z79.82 Long term (current) use of aspirin; Z79.01 Long term (current) use of anticoagulants; W01.198A Fall on same level from slipping, tripping and stumbling with subsequent striking against other object, initial encounter; Y92.480 Sidewalk as the place of occurrence of the external cause; Y99.8 Other external cause status; Y93.01 Activity, walking, marching and hiking
CPT/HCPCS: 71046-PO; 72070-PO; 73130-PO

== ENCOUNTER 2017-08-25 12:03 | Emergency (ER) | payer OTHER, MEDICARE ==
--- NOTE | 2017-08-25 12:25 | EDPHY ---
H & P Stated Complaint: Productive cough and sore throat x 1 day. Denies fever. Time Seen by Provider: 08/25/17 12:16 HPI/ROS: CHIEF COMPLAINT: Cough HISTORY OF PRESENT ILLNESS: The patient is an 86-year-old female with a complaint of cough productive of grayish sputum that began this morning. No fevers. No shortness of breath. No chest pain. No hemoptysis. She is on Coumadin which she states is for history of myocardial infarction with several stents 10 years ago. She denies weakness. No fevers. She has a slight sore throat. No history of COPD or emphysema. REVIEW OF SYSTEMS: Constitutional: denies: chills, fever, recent illness, recent injury EENTM: denies: blurred vision, double vision, nose congestion Respiratory: See HPI Cardiac: denies: chest pain, irregular heart rate, lightheadedness, palpitations Gastrointestinal/Abdominal: denies: abdominal pain, diarrhea, nausea, vomiting, blood streaked stools Genitourinary: denies: dysuria, frequency, hematuria, pain Musculoskeletal: denies: joint pain, muscle pain Skin: denies: lesions, rash, jaundice, bruising Neurological: denies: headache, numbness, paresthesia, tingling, dizziness, weakness Hematologic/Lymphatic: denies: blood clots, easy bleeding, easy bruising Immunologic/allergic: denies: HIV/AIDS, transplant EXAM: GENERAL: Well-appearing, well-nourished and in no acute distress. HEAD: Atraumatic, normocephalic. EYES: Pupils equal round and reactive to light, extraocular movements intact, sclera anicteric, conjunctiva are normal. ENT: TMs normal, nares patent, oropharynx clear without exudates. Moist mucous membranes. NECK: Normal range of motion, supple without lymphadenopathy or JVD. LUNGS: Breath sounds clear to auscultation bilaterally and equal. No wheezes rales or rhonchi. HEART: Regular rate and rhythm without murmurs, rubs or gallops. ABDOMEN: Soft, nontender, normoactive bowel sounds. No guarding, no rebound. No masses appreciated. BACK: No CVA tenderness, no spinal tenderness, step-offs or deformities EXTREMITIES: Normal range of motion, no pitting or edema. No clubbing or cyanosis. NEUROLOGICAL: Cranial nerves II through XII grossly intact. Normal speech, normal gait. 5/5 strength, normal movement in all extremities, normal sensation PSYCH: Normal mood, normal affect. SKIN: Warm, dry, normal turgor, no visible rashes or lesions. Source: Patient Exam Limitations: No limitations - Personal History Current Tetanus Diphtheria and Acellular Pertussis (TDAP): Yes Tetanus Vaccine Date: 2012 - Medical/Surgical History Hx Asthma: No Hx Chronic Respiratory Disease: No Hx Diabetes: No Hx Cardiac Disease: Yes Hx Renal Disease: No Hx Cirrhosis: No Hx Alcoholism: No Hx HIV/AIDS: No Hx Splenectomy or Spleen Trauma: No Other PMH: HYPOTHYROID, AFIB, PACEMAKER, [place] + 6 stent, GALLBLADDER, RIGHT SHOULDER, CATARACTS, CAROTID ANEURISM, chronic cough - Family History Significant Family History: No pertinent family hx - Social History Smoking Status: Former smoker Alcohol Use: Sober Drug Use: None Constitutional: Initial Vital Signs Temperature (C) 37.1 C 08/25/17 12:11 Heart Rate 74 08/25/17 12:11 Respiratory Rate 18 08/25/17 12:11 Blood Pressure 117/60 08/25/17 12:11 O2 Sat (%) 94 08/25/17 12:11 O2 Delivery Mode Room Air Allergies/Adverse Reactions: codeine [Codeine] Allergy (Verified 08/25/17 12:15) PT REPORT CP hydrocodone [Hydrocodone] Allergy (Verified 08/25/17 12:15) PT REPORTS CP morphine Allergy (Verified 08/25/17 12:15) PT REPORTS CP Home Medications: Medication Instructions Recorded Aspirin [Aspirin 81mg (*)] 03/28/09 Simvastatin [Zocor] 03/28/09 Sotalol HCl [Betapace 80 MG (*)] 01/05/12 Carvedilol [Coreg (*)] 08/20/15 Cholecalciferol Vit D3 [Vitamin D3 08/20/15 (*)] Melatonin [Melatonin 3 MG (*)] 08/20/15 Fluticasone Nasal [Flonase Nasal 04/17/17 [place]] Levothyroxine [Synthroid 75 mcg 04/17/17 (*)] Vitamin B Complex [B Complex] 04/17/17 Warfarin Sodium [Coumadin 3MG (*)] 04/17/17 Azithromycin [Zithromax] 250 mg PO DAILY #6 tab 08/25/17 Medical Decision Making - Diagnostics Imaging Results: Imaging Impressions Chest X-Ray 08/25/17 12:23 Impression: Stable chest with no acute findings. Imaging: Discussed imaging studies w/ fisher scallop Radiologist ED Course/Re-evaluation: We discussed the x-ray results. Patient is reassured. She states now that this cough has been somewhat chronic intermittent over the last 5 years. The I recommended we try albuterol to use symptomatically. I will also prescribe her a Z-Young in case her symptoms worsen or she develops a fever. She is happy with this plan and declines further workup or testing at this time. Differential Diagnosis: Partial list of the Differential diagnosis considered include but were not limited to; bronchitis, pneumonia, reactive airway disease strep pharyngitis and although unlikely based on the history and physical exam, I also considered sepsis, acute coronary disease, CHF. I discussed these differential diagnoses and the plan with the patient as well as the usual and expected course. The patient understands that the diagnosis is provisional and that in medicine we are not always correct and that further workup is often warranted. Usual and customary warnings were given. All of the patient's questions were answered. The patient was instructed to return to the emergency department should the symptoms at all worsen or return, otherwise to followup with the physician as we discussed. - Data Points Medications Given: Discontinued Medications Albuterol Sulfate (Proventil Inh Prepack) 1 mdi SAUMYA SHEEHAN ONE Stop: 08/25/17 13:15 Last Admin: 08/25/17 13:26 Dose: 1 mdi Departure - Departure Disposition: Home, Routine, Self-Care Clinical Impression: Bronchitis Condition: Fair Instructions: Albuterol (By breathing), Acute Bronchitis (ED), How to Use a Metered-Dose Inhaler and a Spacer (ED) Referrals: Juli Morin MD [Primary Care Provider] - As per Instructions Prescriptions: Azithromycin [Zithromax] 250 mg PO DAILY #6 tab
[2017-08-25] MEDS ORDERED: ALBUTEROL INH PREPACK MDI TAKEHOME ONE (13:14)
[2017-08-25 13:43] VITALS: BP 112/56
== END 2017-08-25 13:39 | disposition home or self-care (01) ==
LOC: CED 12:03
DX: J40 Bronchitis, not specified as acute or chronic (principal); I25.2 Old myocardial infarction; Z79.01 Long term (current) use of anticoagulants; Z79.82 Long term (current) use of aspirin; Z87.891 Personal history of nicotine dependence; Z95.0 Presence of cardiac pacemaker
CPT/HCPCS: 71046-PO

== ENCOUNTER → 2017-09-07 | Outpatient (CLI) | payer OTHER, MEDICARE | LOC: BHCLAF 08:30 | PROVIDERS: ATTEND Internal Medicine Interventional Cardiology | DX: I25.10 Atherosclerotic heart disease of native coronary artery without angina pectoris (principal); I48.91 Unspecified atrial fibrillation | CPT/HCPCS: 93306-PO ==

== ENCOUNTER → 2017-12-03 | Outpatient (CLI) | payer OTHER, MEDICARE | LOC: CIMAGING 09:55 | PROVIDERS: ATTEND Family Medicine | DX: M50.31 Other cervical disc degeneration, high cervical region (principal); M50.321 Other cervical disc degeneration at C4-C5 level; M50.322 Other cervical disc degeneration at C5-C6 level; M50.323 Other cervical disc degeneration at C6-C7 level; M50.33 Other cervical disc degeneration, cervicothoracic region; M99.71 Connective tissue and disc stenosis of intervertebral foramina of cervical region | CPT/HCPCS: 72050-PO ==

== ENCOUNTER → 2018-03-21 | Outpatient (CLI) | payer OTHER, MEDICARE | LOC: CIMAGING 08:09 | PROVIDERS: ATTEND Family Medicine | DX: R10.13 Epigastric pain (principal); N28.1 Cyst of kidney, acquired; I70.0 Atherosclerosis of aorta; Z90.49 Acquired absence of other specified parts of digestive tract | CPT/HCPCS: 76700-PO ==

== ENCOUNTER → 2018-03-25 | Outpatient (CLI) | payer OTHER, MEDICARE | LOC: BHFA 15:30 | PROVIDERS: ATTEND Internal Medicine Cardiovascular Disease | DX: I73.9 Peripheral vascular disease, unspecified (principal) ==

== ENCOUNTER 2018-08-01 05:27 | Observation (INO) | payer OTHER, MEDICARE ==
[2018-08-01] MEDS ORDERED: LR 1,000 ML IV ONE (05:34)
[2018-08-01 06:34] LABS: INR 1.48 (0.83-1.16); PROTIME(PATIENT) 17.3 SEC (12.0-15.0)
[2018-08-01] MEDS ORDERED: BACITRACIN ZINC 0.5 OZ OINTTUBE TP ONE (06:34)
[2018-08-01] MEDS ORDERED: OXYMETAZOLINE 30 ML NASAL SPRAY ONE (06:34)
[2018-08-01] MEDS ORDERED: LIDO/EPI 1% **Not for Epidural 20 ML MDV ONE (06:34)
[2018-08-01] MEDS ORDERED: EPINEPHrine 30 MG/30 ML MDV (0.1 MG/0.1 ML) ONE (06:35)
[2018-08-01] MEDS ORDERED: CARVEDILOL 6.25 MG TAB PO ONE (06:57)
[2018-08-01] MEDS ORDERED: PROPOFOL 200 MG/20 ML VIAL ONE (07:12)
[2018-08-01] MEDS ORDERED: REMIFENTANIL HCL 1 MG VIAL ONE (07:12)
[2018-08-01] MEDS ORDERED: PROPOFOL/EMULSION 500 MG/50 ML BOTTLE IV ONE (07:12)
[2018-08-01] MEDS ORDERED: fentaNYL 100 MCG/2 ML INJ ONE ×2 (07:12→11:10)
--- NOTE | 2018-08-01 07:18 | PDANEPAE ---
ANE Past Medical History - Cardiovascular History Hx Hypertension: Yes Hx Arrhythmias: Yes Hx Chest Pain: Yes Hx Coronary Artery / Peripheral Vascular Disease: Yes Hx CHF / Valvular Disease: Yes Hx Palpitations: No Cardiovascular History Comment: [place] 2007 s/p stents x6. CP 03/2017 s/p stent to LAD. 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 AFib on warfarin. SSS s/p dual chamber PPM. Aortic insufficiency, nonrheumatic AV, mitral MR. HLD - Pulmonary History Hx COPD: No Hx Asthma/Reactive Airway Disease: No Hx Recent Upper Respiratory Infection: Yes Hx Oxygen in Use at Home: No Hx Sleep Apnea: Yes Sleep Apnea Screening Result - Last Documented: Positive Pulmonary History Comment: Recent course of abx Augmentin for chronic sinusitis. 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 - Endocrine History Hx Diabetes: No Endocrine History Comment: Hypothyroidism. - Renal History Hx Renal Disorders: No - Liver History Hx Hepatic Disorders: No - Neurological & Psychiatric Hx Hx Neurological and Psychiatric Disorders: No - Cancer History Hx Cancer: No - Congenital Disorder History Hx Congenital Disorders: No - GI History Hx Gastrointestinal Disorders: No - Other Health History Other Health History: CORONA. Paranasal sinus disease. Vitamin D deficiency - Chronic Pain History Chronic Pain: Yes - Surgical History Prior Surgeries: Cholecystectomy in age 30s. Stent to LAD 2017. PPM for SSS placed 2014. 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: [employer] Pacemaker Model: Etrinsa 8 DR-T Pacemaker Mode: DDD Date Pacemaker Last Checked: ANE Patient History - Allergies Allergies/Adverse Reactions: codeine [Codeine] Allergy (Verified 08/25/17 12:15) PT REPORT CP hydrocodone [Hydrocodone] Allergy (Verified 08/25/17 12:15) PT REPORTS CP morphine Allergy (Verified 08/25/17 12:15) PT REPORTS CP - Home Medications Home Medications: Acetaminophen [Tylenol ES 500 mg (*)] 1,000 mg PO Q6 PRN 07/26/18 [Last Taken ] Aspirin [Aspirin 81mg (*)] 81 mg PO HS 07/26/18 [Last Taken 07/30/18] Atorvastatin Calcium [Lipitor 20 mg (*)] 20 mg PO HS 07/26/18 [Last Taken Unknown] C/E/Zn/Cu/OM3/DHA/EPA/LUT/ZEAX [Preservision Areds 2 Softgel] 1 each PO DAILY [Last Taken 07/31/18] Carvedilol [Coreg (*)] 6.25 mg PO BIDMEAL 07/26/18 [Last Taken 07/31/18] Herbals/Supplements -Info Only 1 ea PO DAILY 07/26/18 [Last Taken 07/31/18] Levothyroxine [Synthroid 75 mcg (*)] 75 mcg PO DAILY06 07/26/18 [Last Taken ] Multivitamins [Multivitamin (*)] 1 each PO DAILY 07/26/18 [Last Taken 07/31/18] Propylene Glycol/Peg 400/Pf [Systane 0.3-0.4% Eye Drops] 1 drop EACHEYE DAILY PRN 07/26/18 [Last Taken 07/31/18] Sotalol HCl [Sotalol] 80 mg PO BID 07/26/18 [Last Taken 08/01/18] Vitamin B Complex [Vitamin B Complex (OTC)] 1 each PO DAILY 07/26/18 [Last Taken 07/31/18] Warfarin Sodium [Coumadin 1MG (*)] 1 mg PO TUTHSA@18 07/26/18 [Last Taken ] Warfarin Sodium [Coumadin 3MG (*)] 6 mg PO SUMOWEFR@18 07/26/18 [Last Taken 03/06] - NPO status NPO Since - Liquids (Date): 08/01/18 NPO Since - Liquids (Time): 04:30 NPO Since - Solids (Date): 07/31/18 NPO Since - Solids (Time): 18:00 - Smoking Hx Smoking Status: Former smoker - Family Anes Hx Family Hx Anesthesia Complications: None. ANE Labs/Vital Signs - Vital Signs Blood Pressure: 129/63 Heart Rate: 79 Respiratory Rate: 16 O2 Sat (%): 97 Height: 170.18 cm Weight: 57.606 kg ANE Physical Exam - Airway Neck exam: decreased ROM Mallampati Score: Class 2 Mouth exam: poor dentition - Pulmonary Pulmonary: clear to auscultation - Cardiovascular Cardiovascular: regular rate and rhythym - ASA Status ASA Status: III ANE Anesthesia Plan Anesthesia Plan: general endotracheal anesthesia
[2018-08-01] MEDS ORDERED: ROCURONIUM 50 MG/5 ML VIAL ONE (07:19)
[2018-08-01] MEDS ORDERED: DEXAMETHASONE 4 MG/ML VIAL ONE ×3 (07:20)
[2018-08-01] MEDS ORDERED: PETROLAT,WHT/MIN OIL/SOD CHL 3.5 GM OPHT.OINT ONE (07:21)
--- NOTE | 2018-08-01 07:22 | PDHPUP ---
History & Physical Update H&P update statement: This history and physical update is based on an assessment of the patient which was completed after admission or registration (within 24 hours), but prior to the surgery/procedure. H&P update: no change in patient's condition since H&P completed (Pt INR is 1.48 this orning. I feel it is still reasonable to procede and will start with the balloon dilation procedures first, prior to moving on to the ethmoidectomies. )
[2018-08-01] MEDS ORDERED: DEXMEDETOMIDINE HCL 400 MCG in NS 100 ML IV SCH (07:30)
[2018-08-01] MEDS ORDERED: METOCLOPRAMIDE 10 MG/2 ML VIAL ONE (10:33)
[2018-08-01] MEDS ORDERED: ONDANSETRON 4 MG/2 ML VIAL ONE (10:33)
[2018-08-01] MEDS ORDERED: ACETAMINOPHEN 500 MG TAB PO PRN ×2 (10:40→12:31)
[2018-08-01] MEDS ORDERED: MEPERIDINE 25 MG/0.5 ML AMP IVP PRN (10:40)
[2018-08-01] MEDS ORDERED: DEXAMETHASONE 4 MG/ML VIAL IVP PRN (10:40)
[2018-08-01] MEDS ORDERED: PROMETHAZINE HCL 25 MG/ML INJ IVP PRN ×2 (10:40→12:25)
[2018-08-01] MEDS ORDERED: ALBUTEROL 3 ML DEYVIAL IH PRN (10:40)
[2018-08-01] MEDS ORDERED: NALOXONE HCL 0.4 MG/ML INJ IVP PRN (10:40)
[2018-08-01] MEDS ORDERED: METOCLOPRAMIDE 10 MG/2 ML VIAL IVP PRN (10:40)
[2018-08-01] MEDS ORDERED: ONDANSETRON 4 MG/2 ML VIAL IVP PRN (10:40)
[2018-08-01] MEDS ORDERED: LR 500 ML IV PRN (10:40)
[2018-08-01] MEDS ORDERED: HYDROmorphONE/DILAUDID 1 MG/ML INJ IVP PRN (10:40)
[2018-08-01] MEDS: fentaNYL 100 MCG/2 ML INJ IVP PRN ×2 (11:15→11:25)
[2018-08-01] MEDS ORDERED: ACETAMINOPHEN 500 MG TAB ONE (11:51)
--- NOTE | 2018-08-01 12:12 | POSTANESTH ---
Post Anesthetic Evaluation Cardiovascular Status: Normal, Stable Respiratory Status: Normal, Stable Level of Consciousness/Mental Status: Can Participate in Eval Pain Control: Adequate, Prn Tx Ordered Nausea/Vomiting Control: Adequate, Prn Tx Ordered Complications Possibly Related to Anesthesia: None Noted
[2018-08-01] MEDS: OXYCODONE/APAP 5/325 TAB PO PRN ×2 (12:44→19:34)
--- NOTE | 2018-08-01 13:37 | GOP ---
[f rep st] OPERATIVE REPORT DATE OF OPERATION: 08/01/2018 SURGEON: Forest Smith MD ANESTHESIA: General. PREOPERATIVE DIAGNOSIS: Bilateral chronic pansinusitis. POSTOPERATIVE DIAGNOSIS: Bilateral chronic pansinusitis. PROCEDURE PERFORMED: 1. Stereotactic guidance x2 hours. 2. Bilateral endoscopic frontal sinusotomy. 3. Bilateral endoscopic maxillary antrostomies with removal of tissue from maxillary sinus. 4. Bilateral total ethmoidectomies. 5. Bilateral sphenoidotomy. FINDINGS: Extensive polypoid changes within the sinuses. Numerous pockets of thick purulent exudate , as well as on the right side pockets of fungal mucin which was thick and pasty. SPECIMENS: 1. Left and right sinus tissue samples. 2. Culture of left maxillary sinus. 1. Culture of right sphenoid sinus. 3. ESTIMATED BLOOD LOSS: 100 mL. INDICATIONS: The patient is an 87-year-old woman with years of persistent sinus disease which has fa iled medical therapy. She presents for surgical intervention in hopes of improving her chronic compl aints of facial pressure and pain and recurrent exacerbations of sinusitis. DESCRIPTION OF PROCEDURE: The patient was taken the OR, positively identified, placed on monitors an d general anesthesia was induced. The stereotactic guidance system was set up and calibrated and use d for approximately 2 hours of the procedure which lasted almost 3 hours in total. At this point, th e nose was topically decongested with Afrin-soaked pledgets. Beginning on the right side, I injected the lateral nasal wall middle turbinate with 0.5 cc of 1% lidocaine with 1:100,000 epinephrine. On the right side, the uncinate process was severely medialized from having chronic pus and fungal debri s under pressure. The uncinate was taken down with backbiting and angled-through cutting forceps wit h immediate release of pus and fungal debris, which was suctioned away. The natural antrostomy was l ocated and enlarged posteriorly into the rather significant accessory ostium which had formed. A pro tracted amount of time was then taken to wash out as much of the fungal debris and mucin as I could. There was a bit down low anterior which I could not dislodge. Attention was now turned to the frontal sinus on the right side. I was able to cannulate the frontal ostium with the [email or web address] balloon dilating system. Sequence of 3 dilations were performed, extendin g up into the frontal sinus. At this point, I irrigated the right frontal sinus with copious amounts of sterile saline, suctioned away a lot of thick mucus in the process. At this point, the ethmoidectomy was then performed, taking down the ethmoid bulla and extending back through the ground lamella of the middle turbinate to the base of the sphenoid sinus and then follow ing up along the skull base and laterally along the orbit. Because of the patient having rather sign ificant oozing, I had to frequently stop and pack the nose and switch from [id number]. In interest of clarity, this is being dictated in a linear fashion. The middle turbinate was then lateralized and the sphenoid balloon was then passed into the sphenoid ostium and inflated. The sphenoid sinus was filled with thick pus. A culture was then taken. The s phenoid sinus was irrigated with sterile saline. Attention was now turned to the left side of the no se. In this case, similar sequences was performed, although there was no fungal debris on the left side o f the nose. The uncinate process was taken down. The natural ostium enlarged posteriorly through th e fontanelle. There was some pus in the maxillary sinus, which was cultured. At this point, the bal loon dilation was attempted, but I was unable to get an obvious clear and successful balloon dilation of the left frontal sinus, so I performed a traditional frontal sinusotomy, taking down the beak of the middle turbinate, taking down the ethmoid bulla and some of the agger nasi cells. At this point, the remainder of the ethmoidectomy was performed, dissecting back through the ground lamella of the middle turbinate to the base of the sphenoid, and then up along the skull base anteriorly. There was a lot of polypoid mucosa and oozing as there was on the left side, requiring frequent irrigation and packing with Afrin-soaked pledgets. Once the ethmoidectomy was completed, I then turned attention t o the sphenoid. The middle turbinate was medialized and the sphenoid ethmoid recess was visualized. The sphenoid balloon was passed into the sphenoid ostium under direct visualization, and then balloo n dilation was performed followed by irrigation of the left sphenoid sinus. Both sides of the nose w ere then irrigated with copious amounts of saline, suctioned away blood clots and irrigant. At this point, Surgicel was placed on either side of the nose to assist in hemostasis and the case was termin ated. The anesthetic was discontinued. The patient was extubated and taken to postop care unit in g ood condition. COMPLICATIONS: None. /[id number]/MODL
--- NOTE | 2018-08-01 13:42 | POSTOPPROG ---
Post Op Note Date of Operation: 08/01/18 Surgeon: Forest Smith Anesthesiologist: Dr Keen Anesthesia: GET(General Endotracheal) Pre-op Diagnosis: Chronic Pansinusitis Post-op Diagnosis: same Indication: years of chronic sinusitis Procedure: Bilateral endoscopic sinus surgery(see dictataion for details) Findings: extensive inflammation in sinuses, fungal debris on the right Inf/Abcess present in the surg proc area at time of surgery?: No Complications: none Bowel Protocol: No Clean Closure Performed: No Specimen(s): left and right sinus tissue specimens, cultures of right sphenoid and left maxillary sinus drainage.
--- NOTE | 2018-08-01 18:39 | SOAPPROG ---
SOAP Progress Note Assessment/Plan: Assessment: Pt feeling better now, after a rough afternoon. Plan: The pt should be ready for discharge tomorrow. She has a follow up next week 08/01/18 18:37 Subjective: I feel better now, but it really hurt this afternoon. Objective: Vital Signs Temp Pulse Resp BP Pulse Ox 36.4 C 72 16 134/71 H 96 08/01/18 15:22 08/01/18 15:22 08/01/18 15:22 08/01/18 15:22 08/01/18 15:22 Microbiology 08/01/18 08:30 Gram Stain - Final Sinus Aspirate - Eswab 08/01/18 09:43 Gram Stain - Final Other - Swab 07/31/18 08/01/18 08/02/18 05:59 05:59 05:59 Intake Total 950 Output Total 20 Balance 930 PT 17.3 SEC (12.0-15.0) H 08/01/18 06:06 INR 1.48 (0.83-1.16) H 08/01/18 06:06 PT is alert and oriented, she has no bleeding Throat is clear of drainage ICD10 Worksheet Patient Problems: Problems Problem Status Onset Chest pain Acute
[2018-08-01] MEDS: SOTALOL HCL 80 MG TAB PO SCH (19:35)
[2018-08-01] MEDS: CARVEDILOL 6.25 MG TAB PO SCH (19:36)
[2018-08-01] MEDS ORDERED: ATORVASTATIN CALCIUM 20 MG TAB PO SCH (21:00)
[2018-08-02] MEDS: OXYCODONE/APAP 5/325 TAB PO PRN ×2 (04:50→11:28)
[2018-08-02] MEDS ORDERED: PNEUMOC 13-VAL CONJ-DIP CRM/PF 0.5 ML SYR (PREVNAR 13) IM ONE (05:42)
[2018-08-02] MEDS ORDERED: LEVOTHYROXINE 75 MCG TAB PO SCH (06:00)
[2018-08-02 07:54] VITALS: BP 105/53
[2018-08-02] MEDS: SOTALOL HCL 80 MG TAB PO SCH (08:36)
[2018-08-02] MEDS: CARVEDILOL 6.25 MG TAB PO SCH (08:37)
[2018-08-02] MEDS ORDERED: MULTIVITAMINS 1 EACH TAB PO SCH (09:00)
[2018-08-02] MEDS ORDERED: VITAMIN B COMPLEX 1 EA CAP/TAB PO SCH (09:00)
[2018-08-02] MEDS ORDERED: PRESERVISION AREDS2 FORMULA EYE VIT 1 EACH PO SCH (09:00)
--- NOTE | 2018-08-02 09:49 | ASDISCHSUM ---
Discharge Information Plan Status:Home with No Needs Medically Cleared to Leave:08/02/2018 Discharge Date:08/02/2018 CM D/C Disposition:Home, Routine, Self-Care ADT D/C Disposition:Home, Routine, Self-Care Projected Discharge Date:08/02/2018 Transportation at D/C:Family Discharge Delay Reason: Follow-Up Date:08/02/2018 Discharge Slot: Final Diagnosis: Placement Information Patient Contact Information Contact Name:JANENE Relationship:Daughter Address:[address] City:[place] Phone: [facility]/Zip Code:[place] [address] Email: Financial Information Financial Class:Medicare Primary Plan Desc:MEDICARE OUTPATIENT Primary Plan Number:[id number] Secondary Plan Desc:KAILA/DEBBIE SUPPLEMENT Secondary Plan Number:[id number] Assessment Information LACE LACE Length of stay for Answers: 1 day current admission Comorbidities - select Answers: Cerebrovascular disease all that apply (CVA, TIA, aneurysms, vasc ular dementia) Congestive heart failure Coronary Artery Disease Opioid dependence / Chronic pain Previous myocardial infarction Other Notes: HTN; AFib; Hypothyroid # of Emergency department Answers: 0 visits in the last 6 months Score: 12 Date Signed: 08/02/2018 09:48 AM Electronically Signed By:Hermelinda West Case Management Discharge Plan Note Case Management Discharge Discharge Order Complete? Answers: Yes Patient to Obtain Answers: Independently Medications Discharge Comments Notes: CM met with pt. Pt reports that her daughter is coming to get her. Pt is medically stable for discharge. Date Signed: 08/02/2018 09:47 AM Electronically Signed By:Hermelinda West Intervention Information
--- NOTE | 2018-08-02 09:54 | PDDCSUM ---
Discharge Summary Discharge Summary: Pt POD#1 s/p endoscopic sinus surgery by Dr. Lockhart. Doing well. Pain controlled. Okay for discharge. Restart coumadin Sunday Plan reviewed with Dr. Smtih
== END 2018-08-02 11:42 | disposition home or self-care (01) ==
LOC: F3E 05:27
PROVIDERS: ADMIT Otolaryngology; ATTEND Otolaryngology
DX: J01.41 Acute recurrent pansinusitis (principal); I25.2 Old myocardial infarction; I48.91 Unspecified atrial fibrillation; Z95.5 Presence of coronary angioplasty implant and graft; Z79.01 Long term (current) use of anticoagulants
CPT/HCPCS: 31259; 31267; 88305; 88311; 90670; C1726; G0009; J0690; J1100; J2405; J2550; J2704; J2765; J3010; J0171

== ENCOUNTER → 2018-09-13 | Outpatient (CLI) | payer OTHER, MEDICARE | LOC: FIMAGING 13:36 ==